=== PATIENT | female | born 1960 | race Caucasian/White ===

== ENCOUNTER 2016-08-07 22:29 | Emergency (ER) | payer SELFPAY ==
[~2016-08-07] VITALS: Ht 152.4 cm; Wt 67.1 kg
[2016-08-07 22:37] VITALS: BP 106/69
== END 2016-08-07 23:42 | disposition home or self-care (01) ==
LOC: ED 23:30
DX: L03.114 Cellulitis of left upper limb (principal)
CPT/HCPCS: 99283